=== PATIENT | female | born 1945 | race Caucasian/White ===

== ENCOUNTER 2016-11-24 16:01 | Emergency (ER) | payer OTHER ==
--- NOTE | 2016-11-24 17:11 | Diag Imaging Result Document ---
PROCEDURE NAME: HAND COMPLETE LEFT - 11/24/2016 LEFT HAND 3 VIEWS: FINDINGS: There is generalized osteopenia. There is severe degenerative change in the distal interphalangeal joint of the 5th finger. There are degenerative changes in the radiocarpal joint. There is widening of the scapholunate joint presumably due to disruption of the ligament complex. The fracture of the distal radius present on 06/10/2014 has apparently healed. IMPRESSION: No evidence of acute fracture. Degenerative and posttraumatic changes as described.
--- NOTE | 2016-11-24 17:23 | PROVIDER DOCUMENTATION ---
HPI-Musculoskeletal Pain/Inj <Abida Chester - Last Filed: 11/24/16 19:35> - GENERAL Source: patient - HX OF PRESENT ILLNESS-MUSKULOSKELTAL Quality of Pain: reports: aching Severity in ED: mild Onset/Duration: 3 days ago Timing: still present, improving, constant Modifying Factors: improves with: nothing Any recent injury?: Yes Locality of Occurance: Home Similar Symptoms Previously?: No Recently seen or treated by another doctor?: No <Eveline Diego - Last Filed: 11/25/16 15:21> - GENERAL Chief Complaint: Extremity Injury Stated Complaint: LEFT HAND SWOLLEN Time Seen by Provider: 11/24/16 17:10 - HX OF PRESENT ILLNESS-MUSKULOSKELTAL Nature of Presenting Problem: 71 year old WF presents with c/o left hand pain for 3 days. pt reports she had a seizure that was witnessed by her boyfriend. pt report she has had 3 seizures in the last 2 months. she denies a history of seizures or ever having been evaluated for seizures. pt report before her seizures she starts to feel weak, she lays down and then has a seizure. pt reports she is starting treatment for thyroid cancer. denies focal weakness, headache, visual, auditory changes or any other complaints besides the left hand tenderness at this time. (Eveline Diego) Review of Systems - Adult - REVIEW OF SYSTEMS - ADULT Constitutional: reports: no symptoms reported. denies: chills, fever, fatique Eyes: reports: no symptoms reported. denies: discharge, dry eyes, decreased vision, blurred vision, double vision, eye pain, redness Ears, Nose, Mouth & Throat: reports: no symptoms reported. denies: ear discharge, ear pain, nose pain, loose teeth, throat pain, throat swelling Cardiovascular: reports: no symptoms reported. denies: chest pain, palpitations , syncope Respiratory: reports: no symptoms reported. denies: chronic cough, cough, shortness of breath, wheezing Gastrointestinal: reports: no symptoms reported. denies: abdominal pain, diarrhea, nausea, vomiting Genitourinary: reports: no symptoms reported. denies: dysuria, hematuria, urgency Musculoskeletal: reports: see HPI, bone pain, joint pain, joint swelling. denies: back pain, frequent leg cramps, muscle aches, muscle weakness, neck pain Integumentary: reports: see HPI, other (ecchymosis, right hand). denies: hair loss, itching, rash Neurological: reports: see HPI, seizure. denies: ataxia, dizziness/vertigo, headache/migraines, loss of balance, numbness, paresthesia, slurred speech, syncope, tremors Psychiatric: reports: no symptoms reported Endocrine: reports: no symptoms reported Hematologic/Lymphatic: reports: no symptoms reported Allergic/Immunologic: reports: no symptoms reported All Other Systems: Reviewed and Negative <Eveline Diego - Last Filed: 11/25/16 15:21> Past History - Adult - PAST MEDICAL HISTORY-ADULT Review of Records: reports: Old Records Reviewed, Nursing Assessment Review, Medications Reviewed, Social history reviewed & non-contributory. 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 negative: mild distress, moderate distress, severe distress, lethargic, slow to respond, obtunded, combative Eyes: PERRL/EOMI, pink conjunctivae. negative: conjuctival exudate, pale conjunctivae, photophobia, sclera injected, scleral icterus, subconjunctival hemorrhage Head, Ears, Nose, Mouth & Throat: normocephalic/atraumatic, moist mucous membranes, normal ENT inspection Neck: non-tender, full range of motion, supple, normal inspection. negative: C- spine tenderness, decresed ROM, limited range of motion, pain on movement, trachial deviation, tender lateral, vertebral point tenderness Respiratory: chest non-tender, lungs clear, normal breath sounds, no pleuratic chest pain, no respiratory distress, no accessory muscle use. negative: respiratory distress, decreased breath sounds, accessory muscle use, crackles, rales, rhonchi, stridor, wheezing Cardiovascular: normal peripheral pulses, regular rate, rhythm Peripheral Pulses: radial (R): 3+, radial (L): 3+ Abdominal Exam: normal bowel sounds, non tender, soft Female Genitalia/Pelvic Exam: deferred Rectal Exam: deferred Hemoccult Exam: deferred Back Exam: normal inspection, no CVA tenderness, no vertebral tenderness. negative: CVA tenderness, decreased range of motion, swelling, vertebral tenderness Extremity: normal range of motion, normal gait, no pedal edema, no calf tenderness, normal capillary refill, pelvis stable, swelling (right naterior/ posterior hand with diffuse ecchymosis with swelling. no deformity.), tenderness . negative: non-tender, normal inspection, abnormal NV exam, calf tenderness, deformity, erythema, inflammation, joint effusion, pulse deficit, pedal edema, slow capillary refill Integumentary: normal color, warm/dry, ecchymosis (right hand) Neurologic: broadband engineer II-XII nml as tested, grossly normal, no motor/sensory deficits , negative romberg's sign. negative: abnormal cerebellar tests, abnormal broadband engineer II -XII, abnormal gait, aphasia, EOM palsy, facial droop, focal weakness, motor weakness, sensory deficit, positive romberg's sign Psych/Mental Status: normal mood/affect, normal thought content, normal thought process, oriented x 3 - Glascow Coma Score Best Eye Response (Avinash): (4) open spontaneously Best Verbal Response (Avinash): (5) oriented Best Motor Response (Avinash): (6) obeys commands Avinash Total: 15 <Eveline Diego - Last Filed: 11/25/16 15:21> Progress - EKG 1 Time of EKG reading by physician:: 19:23 EKG Read and Signed by:: Pedro Luis Tinsley EKG Interpretation (*Must complete 3 of following elements*): Abnormal Rate: 61 Rhythm: NSR QRS: LVH <Abida Chester - Last Filed: 11/24/16 19:35> - XRAY 1 XRAY Study: Chest Impression: Normal (per DR. Hodge) 2 XRAY: Right XRAY Study: Hand Impression: Normal (per Dr. Fox) - CT/MRI 1 CT Study: Head Impression: Normal (per Dr. Fox) <Eveline Diego - Last Filed: 11/25/16 15:21> - PLAN OF CARE/RESULTS Progress/Plan/Lab Results: Laboratory Tests 11/24/16 11/24/16 11/24/16 18:35 18:35 18:35 WBC 6.70 RBC 3.66 L Hgb 11.4 L Hct 35.5 L MCV 97.0 MCH 31.1 H MCHC 32.1 L RDW Std Deviation 14.6 H Plt Count 193 MPV 10.2 Immature Gran % (Auto) 0.0 Neut % (Auto) 46.5 Lymph % (Auto) 41.6 [place] % (Auto) 7.9 Eos % (Auto) 3.6 Baso % (Auto) 0.4 Immature Gran # (Auto) 0.00 Neut # (Auto) 3.11 Lymph # (Auto) 2.79 [place] # (Auto) 0.53 Eos # (Auto) 0.24 Baso # (Auto) 0.03 PT INR PTT (Actin FS) Sodium 141 Potassium 4.2 Chloride 106 Carbon Dioxide 24 L Anion Gap 11 BUN 16 Creatinine 0.8 Estimated GFR/1.73 m2 > 60 BUN/Creatinine Ratio 20 Glucose 91 Calculated Osmolality 282 Calcium 8.5 L Total Bilirubin 0.20 AST 13 ALT 10 Alkaline Phosphatase 66 Creatine Kinase 42 Troponin T Total Protein 6.4 Albumin 4.0 Globulin 2.4 Albumin/Globulin Ratio 1.7 Urine Source Urine Color Urine Turbidity Urine pH Ur Specific [place] Urine Protein Ur Glucose (Stick) Ur Ketones (Stick) Urine Blood Urine Nitrite Urine Bilirubin Urobilinogen Dipstick Urine Leukocytes Urine WBC (Auto) Urine RBC (Auto) U Epithel Cells (Auto) Urine Bacteria (Auto) Urine Crystals Small Round Cells Urine Casts Urine Yeast-like Cells Urine Opiates Screen Ur Oxycodone Screen Ur Methadone, Qual Ur Barbiturates Screen Ur Phencyclidine Scrn Ur Amphetamines Screen U Benzodiazepines Scrn Urine Cocaine Screen U Cannabinoids Screen Plasma/Serum Ethyl Alc 11/24/16 11/24/16 11/24/16 18:35 18:35 18:42 WBC RBC Hgb Hct MCV MCH MCHC RDW Std Deviation Plt Count MPV Immature Gran % (Auto) Neut % (Auto) Lymph % (Auto) [place] % (Auto) Eos % (Auto) Baso % (Auto) Immature Gran # (Auto) Neut # (Auto) Lymph # (Auto) [place] # (Auto) Eos # (Auto) Baso # (Auto) PT 10.0 INR 0.96 PTT (Actin FS) 26.2 Sodium Potassium Chloride Carbon Dioxide Anion Gap BUN Creatinine Estimated GFR/1.73 m2 BUN/Creatinine Ratio Glucose Calculated Osmolality Calcium Total Bilirubin AST ALT Alkaline Phosphatase Creatine Kinase Troponin T < 0.010 Total Protein Albumin Globulin Albumin/Globulin Ratio Urine Source CLEAN CATCH Urine Color STRAW Urine Turbidity CLEAR Urine pH 5.5 Ur Specific [place] 1.007 Urine Protein NEGATIVE Ur Glucose (Stick) NEGATIVE Ur Ketones (Stick) NEGATIVE Urine Blood NEGATIVE Urine Nitrite NEGATIVE Urine Bilirubin NEGATIVE Urobilinogen Dipstick NORMAL Urine Leukocytes MODERATE A Urine WBC (Auto) 10-20 A Urine RBC (Auto) <10 U Epithel Cells (Auto) <10 Urine Bacteria (Auto) NEGATIVE Urine Crystals NONE SEEN Small Round Cells Not Reportable Urine Casts Not Reportable Urine Yeast-like Cells Not Reportable Urine Opiates Screen Ur Oxycodone Screen Ur Methadone, Qual Ur Barbiturates Screen Ur Phencyclidine Scrn Ur Amphetamines Screen U Benzodiazepines Scrn Urine Cocaine Screen U Cannabinoids Screen Plasma/Serum Ethyl Alc 11/24/16 18:42 WBC RBC Hgb Hct MCV MCH MCHC RDW Std Deviation Plt Count MPV Immature Gran % (Auto) Neut % (Auto) Lymph % (Auto) [place] % (Auto) Eos % (Auto) Baso % (Auto) Immature Gran # (Auto) Neut # (Auto) Lymph # (Auto) [place] # (Auto) Eos # (Auto) Baso # (Auto) PT INR PTT (Actin FS) Sodium Potassium Chloride Carbon Dioxide Anion Gap BUN Creatinine Estimated GFR/1.73 m2 BUN/Creatinine Ratio Glucose Calculated Osmolality Calcium Total Bilirubin AST ALT Alkaline Phosphatase Creatine Kinase Troponin T Total Protein Albumin Globulin Albumin/Globulin Ratio Urine Source Urine Color Urine Turbidity Urine pH Ur Specific [place] Urine Protein Ur Glucose (Stick) Ur Ketones (Stick) Urine Blood Urine Nitrite Urine Bilirubin Urobilinogen Dipstick Urine Leukocytes Urine WBC (Auto) Urine RBC (Auto) U Epithel Cells (Auto) Urine Bacteria (Auto) Urine Crystals Small Round Cells Urine Casts Urine Yeast-like Cells Urine Opiates Screen NONE DETECTED Ur Oxycodone Screen NONE DETECTED Ur Methadone, Qual NONE DETECTED Ur Barbiturates Screen NONE DETECTED Ur Phencyclidine Scrn NONE DETECTED Ur Amphetamines Screen NONE DETECTED U Benzodiazepines Scrn NONE DETECTED Urine Cocaine Screen NONE DETECTED U Cannabinoids Screen NONE DETECTED Plasma/Serum Ethyl Alc Laboratory Tests 11/24/16 11/24/16 11/24/16 18:35 18:35 18:35 WBC 6.70 RBC 3.66 L Hgb 11.4 L Hct 35.5 L MCV 97.0 MCH 31.1 H MCHC 32.1 L RDW Std Deviation 14.6 H Plt Count 193 MPV 10.2 Immature Gran % (Auto) 0.0 Neut % (Auto) 46.5 Lymph % (Auto) 41.6 [place] % (Auto) 7.9 Eos % (Auto) 3.6 Baso % (Auto) 0.4 Immature Gran # (Auto) 0.00 Neut # (Auto) 3.11 Lymph # (Auto) 2.79 [place] # (Auto) 0.53 Eos # (Auto) 0.24 Baso # (Auto) 0.03 PT INR PTT (Actin FS) Sodium 141 Potassium 4.2 Chloride 106 Carbon Dioxide 24 L Anion Gap 11 BUN 16 Creatinine 0.8 Estimated GFR/1.73 m2 > 60 BUN/Creatinine Ratio 20 Glucose 91 Calculated Osmolality 282 Calcium 8.5 L Total Bilirubin 0.20 AST 13 ALT 10 Alkaline Phosphatase 66 Creatine Kinase 42 Troponin T Total Protein 6.4 Albumin 4.0 Globulin 2.4 Albumin/Globulin Ratio 1.7 Urine Source Urine Color Urine Turbidity Urine pH Ur Specific [place] Urine Protein Ur Glucose (Stick) Ur Ketones (Stick) Urine Blood Urine Nitrite Urine Bilirubin Urobilinogen Dipstick Urine Leukocytes Urine WBC (Auto) Urine RBC (Auto) U Epithel Cells (Auto) Urine Bacteria (Auto) Urine Crystals Small Round Cells Urine Casts Urine Yeast-like Cells Urine Opiates Screen Ur Oxycodone Screen Ur Methadone, Qual Ur Barbiturates Screen Ur Phencyclidine Scrn Ur Amphetamines Screen U Benzodiazepines Scrn Urine Cocaine Screen U Cannabinoids Screen Plasma/Serum Ethyl Alc 11/24/16 11/24/16 11/24/16 18:35 18:35 18:42 WBC RBC Hgb Hct MCV MCH MCHC RDW Std Deviation Plt Count MPV Immature Gran % (Auto) Neut % (Auto) Lymph % (Auto) [place] % (Auto) Eos % (Auto) Baso % (Auto) Immature Gran # (Auto) Neut # (Auto) Lymph # (Auto) [place] # (Auto) Eos # (Auto) Baso # (Auto) PT 10.0 INR 0.96 PTT (Actin FS) 26.2 Sodium Potassium Chloride Carbon Dioxide Anion Gap BUN Creatinine Estimated GFR/1.73 m2 BUN/Creatinine Ratio Glucose Calculated Osmolality Calcium Total Bilirubin AST ALT Alkaline Phosphatase Creatine Kinase Troponin T < 0.010 Total Protein Albumin Globulin Albumin/Globulin Ratio Urine Source CLEAN CATCH Urine Color STRAW Urine Turbidity CLEAR Urine pH 5.5 Ur Specific [place] 1.007 Urine Protein NEGATIVE Ur Glucose (Stick) NEGATIVE Ur Ketones (Stick) NEGATIVE Urine Blood NEGATIVE Urine Nitrite NEGATIVE Urine Bilirubin NEGATIVE Urobilinogen Dipstick NORMAL Urine Leukocytes MODERATE A Urine WBC (Auto) 10-20 A Urine RBC (Auto) <10 U Epithel Cells (Auto) <10 Urine Bacteria (Auto) NEGATIVE Urine Crystals NONE SEEN Small Round Cells Not Reportable Urine Casts Not Reportable Urine Yeast-like Cells Not Reportable Urine Opiates Screen Ur Oxycodone Screen Ur Methadone, Qual Ur Barbiturates Screen Ur Phencyclidine Scrn Ur Amphetamines Screen U Benzodiazepines Scrn Urine Cocaine Screen U Cannabinoids Screen Plasma/Serum Ethyl Alc 11/24/16 18:42 WBC RBC Hgb Hct MCV MCH MCHC RDW Std Deviation Plt Count MPV Immature Gran % (Auto) Neut % (Auto) Lymph % (Auto) [place] % (Auto) Eos % (Auto) Baso % (Auto) Immature Gran # (Auto) Neut # (Auto) Lymph # (Auto) [place] # (Auto) Eos # (Auto) Baso # (Auto) PT INR PTT (Actin FS) Sodium Potassium Chloride Carbon Dioxide Anion Gap BUN Creatinine Estimated GFR/1.73 m2 BUN/Creatinine Ratio Glucose Calculated Osmolality Calcium Total Bilirubin AST ALT Alkaline Phosphatase Creatine Kinase Troponin T Total Protein Albumin Globulin Albumin/Globulin Ratio Urine Source Urine Color Urine Turbidity Urine pH Ur Specific [place] Urine Protein Ur Glucose (Stick) Ur Ketones (Stick) Urine Blood Urine Nitrite Urine Bilirubin Urobilinogen Dipstick Urine Leukocytes Urine WBC (Auto) Urine RBC (Auto) U Epithel Cells (Auto) Urine Bacteria (Auto) Urine Crystals Small Round Cells Urine Casts Urine Yeast-like Cells Urine Opiates Screen NONE DETECTED Ur Oxycodone Screen NONE DETECTED Ur Methadone, Qual NONE DETECTED Ur Barbiturates Screen NONE DETECTED Ur Phencyclidine Scrn NONE DETECTED Ur Amphetamines Screen NONE DETECTED U Benzodiazepines Scrn NONE DETECTED Urine Cocaine Screen NONE DETECTED U Cannabinoids Screen NONE DETECTED Plasma/Serum Ethyl Alc Orders Category Date Time Status CHEST-2 VIEWS [RAD] Stat Exams 11/24/16 17:22 Taken HAND COMPLETE LEFT [RAD] Stat Exams 11/24/16 16:07 Completed HEAD W/O CONTRAST [CT] Stat Exams 11/24/16 17:21 Taken ALCOHOL BLOOD Stat Lab 11/24/16 18:35 Completed CBC WITH ELECTRONIC DIFF [HEME] Stat Lab 11/24/16 18:35 Completed CK PROFILE [SP CHEM] Stat Lab 11/24/16 18:35 Completed COMPREHENSIVE METABOLIC PANEL [CHEM] Stat Lab 11/24/16 18:35 Completed PROTIME WITH INR [COAG] Stat Lab 11/24/16 18:35 Completed PTT [COAG] Stat Lab 11/24/16 18:35 Completed TROPONIN T Stat Lab 11/24/16 18:35 Completed URINALYSIS W/POSS RFLX CULT [URINALYSIS] Stat Lab 11/24/16 18:42 Completed URINE CULTURE [RM] Routine Lab 11/24/16 19:20 Received URINE DRUG SCREEN Stat Lab 11/24/16 18:42 Completed URINE MANUAL MICROSCOPIC [URINALYSIS] Stat Lab 11/24/16 18:42 Completed EKG [EKG] Stat Ther 11/24/16 17:21 Ordered Vital Signs - 24 hr 11/24/16 11/24/16 16:03 19:42 Temperature 97.7 F Pulse Rate 69 63 Respiratory 18 18 Rate Blood Pressure 134/73 183/88 O2 Sat by Pulse 100 100 Oximetry (Eveline Diego) Departure <Abida Chester - Last Filed: 11/24/16 19:35> - Departure Time of Disposition Order: 19:15 Certified Medical Emergency: Emergent <Eveline Diego - Last Filed: 11/25/16 15:21> - Departure DIAGNOSIS: Seizure Contusion of left hand Qualifiers: Encounter type: initial encounter Qualified Code(s): S60.222A - Contusion of left hand, initial encounter Disposition: HOME 01 Condition: Stable Additional Instructions: Follow up with Dr. Mcdonald as directed by your primary care doctor. Seek care for any new or concerning symptoms. ED Follow Up Instructions: You have been treated by a care provider in the Emergency Department. These instructions are being provided to you so you can have an understanding of how to care for yourself upon discharge. Upon discharge from the Emergency Department, you are responsible for making arrangements for follow-up care by a physician of your choice. Take all prescribed medications as directed. Return to the Emergency Department immediately for any new or worsening symptoms. You may call the Physician Referral phone number at [phone] to obtain a list of Physicians who are taking new patients. Referrals: Jayden Akbar MD [Primary Care Provider] - Jessenia Mcdonald III, MD [STAFF PHYSICIAN] - Instructions: Contusion, [id number], Seizure, Adult, [id number] Attestation - Physician/ TOM Attestation Patient care was provided by Advanced Practice Provider:: Yes Advanced Practice Provider:: Eveline Diego Advanced Practice Provider documentation review:: The Mid-level provider documentation, treatment plan and medical decision making was reviewed by the physician who agrees with all treatment and medical decision making by the P. <Eveline Diego - Last Filed: 11/25/16 15:21> Physician Attestation
[2016-11-24 18:46] LABS: MANUAL DIFF NEEDED? NO
[2016-11-24 18:46] LABS: URINE SOURCE CLEAN CATCH
[2016-11-24 18:54] LABS: BASO% 0.4 % (0.0-0.8); EOS# 0.24 X1000 (0.0-0.7); EOS% 3.6 % (0.0-10.0); HEMATOCRIT 35.5 % (37.0-47.0); HEMOGLOBIN 11.4 g/dL (12.0-16.0); LYMPH# 2.79 X1000 (1.2-3.4); LYMPH% 41.6 % (20.5-51.1); MCH 31.1 PG (27-31); MCHC 32.1 g/dL (33-37); MONO# 0.53 X1000 (0.11-0.59); MONO% 7.9 % (1.7-9.3); MPV 10.2 FL (7.4-10.4); NEUT% 46.5 % (42.2-75.2); PLT 193 X1000 (130-400); RBC 3.66 XMIL (4.2-5.4)
[2016-11-24 18:56] LABS: BILIRUBIN URINE NEGATIVE (NEGATIVE); BLOOD URINE NEGATIVE (NEGATIVE); COLOR STRAW; GLUCOSE URINE NEGATIVE (NEGATIVE); LEUKOCYTES URINE MODERATE (NEGATIVE); NITRITE URINE NEGATIVE (NEGATIVE); PH URINE 5.5; PROTEIN URINE NEGATIVE (NEGATIVE); SP GRAVITY URINE 1.007; TURBIDITY URINE CLEAR (CLEAR); UROBILINOGEN URINE NORMAL (NORMAL)
[2016-11-24 18:57] LABS: URINE MICRO REVIEW NEEDED? YES
[2016-11-24 19:00] LABS: UR EPITHELIAL CELLS <10 /HPF (<10); URINE BACTERIA NEGATIVE /HPF; URINE CULTURE NEEDED? YES; URINE RBC <10 /HPF (<10)
[2016-11-24 19:01] LABS: INR 0.96; PTT 26.2 Seconds (22.0-36.0)
[2016-11-24 19:11] LABS: AGAP 11; ALKALINE PHOSPHATASE 66 U/L (32-104); BUN 16 mg/dL (8-22); CALCIUM 8.5 mg/dL (8.8-10.2); CHLORIDE 106 mmol/L (98-107); CK PROFILE 42 U/L (24-173); COSMO 282; GOT 13 U/L (10-30); GPT 10 U/L (10-36); POTASSIUM 4.2 mmol/L (3.5-5.1); SODIUM 141 mmol/L (136-145); TCO2 24 mmol/L (25-35); TOTAL PROTEIN 6.4 g/dL (6.3-8.3)
[2016-11-24 19:15] LABS: URINE CRYSTALS NONE SEEN
[2016-11-24 19:18] LABS: UR AMPHETAMINES QUAL NONE DETECTED (NONE DETECT); UR BARBITUATES QUAL NONE DETECTED (NONE DETECT); UR BENZODIAZEPIN QUAL NONE DETECTED (NONE DETECT); UR CANNABINOIDS QUAL NONE DETECTED (NONE DETECT); UR COCAINE QUAL NONE DETECTED (NONE DETECT); UR METHADONE QUAL NONE DETECTED (NONE DETECT); UR OPIATES QUAL NONE DETECTED (NONE DETECT); UR OXYCODONE QUAL NONE DETECTED (NONE DETECT); UR PCP QUAL NONE DETECTED (NONE DETECT)
[2016-11-24 19:43] VITALS: BP 183/88
--- NOTE | 2016-11-25 05:41 | EKG Report ---
Test Performed on : 11/24/2016 7:23:57 PM Test Reason : AMS Blood Pressure : / mmHG Vent. Rate : 061 BPM Atrial Rate : 061 BPM P-R Int : 148 ms QRS Dur : 070 ms QT Int : 416 ms P-R-T Axes : 036 008 017 degrees QTc Int : 418 ms Normal sinus rhythm. Possible Left atrial enlargement Left ventricular hypertrophy Abnormal ECG When compared with ECG of 02-AUG-2016 12:47, No significant change was found Unconfirmed Result
--- NOTE | 2016-11-25 07:47 | Diag Imaging Result Document ---
PROCEDURE NAME: HEAD W/O CONTRAST - 11/24/2016 CT HEAD WITHOUT CONTRAST: COMPARISON: 06/14/2016. FINDINGS: There is patchy low attenuation in the periventricular and subcortical white matter suggesting [id number] microangiopathy. There is no evidence of acute infarct given the limited sensitivity of CT versus MRI. The microvascular changes appear to be stable as compared to the previous study. There is no discrete intracranial mass, mass effect, or intracranial hemorrhage. Surrounding soft tissues and bony structures are essentially unremarkable. IMPRESSION: Stable chronic changes as described. No definite acute intracranial pathology.
--- NOTE | 2016-11-25 08:14 | Diag Imaging Result Document ---
PROCEDURE NAME: CHEST-2 VIEWS - 11/24/2016 CHEST X-RAY, 2 VIEWS: COMPARISON: 08/30/2016. FINDINGS: The lungs are normally expanded and clear. Heart size and mediastinal contours are normal. No pneumothorax or pleural effusion. IMPRESSION: Negative exam.
== END 2016-11-24 19:45 | disposition home or self-care (01) ==
LOC: ED 16:01
DX: S60.222A Contusion of left hand, initial encounter (principal); R56.9 Unspecified convulsions; M79.642 Pain in left hand; I10 Essential (primary) hypertension; E04.1 Nontoxic single thyroid nodule; J44.9 Chronic obstructive pulmonary disease, unspecified; Z85.3 Personal history of malignant neoplasm of breast; Z86.73 Personal history of transient ischemic attack (TIA), and cerebral infarction without residual deficits; Z79.899 Other long term (current) drug therapy; Z90.10 Acquired absence of unspecified breast and nipple; R94.31 Abnormal electrocardiogram [ECG] [EKG]; Z86.14 Personal history of Methicillin resistant Staphylococcus aureus infection; F41.9 Anxiety disorder, unspecified; F32.9 Major depressive disorder, single episode, unspecified
CPT/HCPCS: 70450; 71020; 80053; 81001; 82550; 84484; 85025; 85610; 85730; 87088; 93005; G0480; 80320; 80324; 80345; 80346; 80349; 80353; 80358; 80361; 80365; 83992